=== PATIENT | female | born 1980 | race Caucasian/White ===

== ENCOUNTER 2017-05-27 00:41 | Emergency (ER) | payer OTHER ==
[~2017-05-27] VITALS: Ht 162.6 cm; Wt 92.9 kg
[2017-05-27] MEDS ORDERED: INTU1TAB PO (00:52)
[2017-05-27] MEDS ORDERED: TRIL1TAB PO (00:52)
[2017-05-27] MEDS ORDERED: DEPA1TAB3 PO (00:52)
[2017-05-27] MEDS ORDERED: NS 1,000 ML IV ONE (02:30)
[2017-05-27 03:10] LABS: BASO % 0.8 % (0.0-1.0); EOS % 0.7 % (0.0-3.0); LARGE UNSTAINED CELL # 0.1 K/mm3 (0.0-0.4); LARGE UNSTAINED CELL % 1.1 % (0.0-4.0); LYMPH % 16.7 % (24.0-44.0); MEAN CORPUSCULAR HEMOGLOBIN 34.8 pg (27.0-33.0); MEAN CORPUSCULAR HGB CONC 35.3 g/dl (32.0-36.5); MEAN CORPUSCULAR VOLUME 98.5 fl (80.0-96.0); MONO # 0.3 K/mm3 (0.0-0.8); MONO % 4.2 % (0.0-5.0); NEUTROPHILS # 4.6 K/mm3 (1.8-7.7); NEUTROPHILS % 76.4 % (36.0-66.0); PLATELET COUNT, AUTOMATED 217 k/mm3 (150-450); RED CELL DISTRIBUTION WIDTH 11.7 % (11.5-14.5); WHITE BLOOD COUNT 6.1 K/mm3 (4.0-10.0)
[2017-05-27 03:13] LABS: CONTROL LINE HCG INT CTR LINE PRESENT
[2017-05-27 03:21] LABS: ALBUMIN 3.6 GM/DL (3.2-5.2); ALBUMIN/GLOBULIN RATIO 1.16 (1.00-1.93); ALKALINE PHOSPHATASE 74 U/L (45-117); ALT/SGPT 16 U/L (12-78); AMYLASE 62 U/L (25-115); ANION GAP 8 MEQ/L (8-16); AST/SGOT 12 U/L (15-37); BILIRUBIN,DIRECT 0.1 MG/DL (0.0-0.2); BILIRUBIN,TOTAL 0.5 MG/DL (0.2-1.0); BLOOD UREA NITROGEN 12 MG/DL (7-18); CALCIUM LEVEL 8.3 MG/DL (8.5-10.1); CARBON DIOXIDE LEVEL 25 MEQ/L (21-32); CHLORIDE LEVEL 109 MEQ/L (98-107); CREATININE FOR GFR 0.78 MG/DL (0.55-1.02); GLOMERULAR FILTRATION RATE > 60.0 (>60); GLUCOSE, FASTING 112 MG/DL (70-105); POTASSIUM SERUM 4.6 MEQ/L (3.5-5.1); SODIUM LEVEL 142 MEQ/L (136-145); TOTAL PROTEIN 6.7 GM/DL (6.4-8.2)
[2017-05-27 03:38] LABS: MICROSCOPIC INDICATED? MAN YES (NO)
--- NOTE | 2017-05-27 03:40 | REPUSA ---
CLINICAL HISTORY: Abdominal pain. TECHNIQUE: Realtime sonographic images were obtained in multiple projections. COMMENTS: Echogenic hepatic lesion in the posterior aspect of the right lobe measuring 1.6 cm suggestive of a h emangioma. The liver is of normal size, parenchyma demonstrates normal echogenicity. No discrete hepatic mass is seen. There is no intra or extrahepatic biliary ductal dilatation. CBD measures 2.2 mm. The gallbladder is physiologically distended without evidence of calculi. The gallbladder wall is not thic negative sono graphic [place]. kened and there is no pericholecystic fluid. There is no abdominal ascites. The right kidney measures 11.8x6.3x4.6 cm , free of hydronephrosis. IMPRESSION: Hemangioma of the right hepatic lobe. No evidence of cholelithiasis or acute cholecystitis. Thank you for your kind referral of this patient.
[2017-05-27 03:49] LABS: MICROSCOPIC EXAM PERFORMED; RBC, URINE 0-1 /hpf (0-3); SQUAMOUS EPITHELIAL CELL URINE SMALL AMOUNT /hpf (SMALL AMT)
[2017-05-27 03:50] LABS: BACTERIA, URINE NONE SEEN; HYALINE CAST, URINE NONE SEEN /lpf (0-1)
[2017-05-27] MEDS ORDERED: PROT1TAB2 PO (03:58)
[2017-05-27 04:24] VITALS: BP 114/72
== END 2017-05-27 04:26 | disposition home or self-care (01) ==
LOC: M ED 00:41
DX: R11.10 Vomiting, unspecified (principal)

== ENCOUNTER 2017-11-06 08:07 | Emergency (ER) | payer OTHER ==
[~2017-11-06] VITALS: Ht 162.6 cm; Wt 98.6 kg
[~2017-11-06 08:07] MED LIST: DEPA1TAB3 PO; INTU1TAB PO; PROT1TAB2 PO; TRIL1TAB PO
[2017-11-06] MEDS ORDERED: FLUV100T2 PO (08:23)
[2017-11-06] MEDS ORDERED: ZITH250T PO (08:55)
[2017-11-06] MEDS ORDERED: ZOFR4TAB3 PO ×2 (08:55→09:40)
[2017-11-06] MEDS ORDERED: AZITHROMYCIN 250 MG TAB PO ONE (09:00)
[2017-11-06] MEDS ORDERED: METOCLOPRAMIDE 10 MG TAB PO ONE (09:00)
[2017-11-06] MEDS ORDERED: KETOROLAC 60 MG/2 ML VIAL (J1885) IM ONE (09:00)
[2017-11-06] MEDS ORDERED: ONDANSETRON 4 MG TAB (S0181) PO ONE (09:00)
[2017-11-06 09:31] VITALS: BP 136/92
[2017-11-06] MEDS ORDERED: ZITHTAB PO (09:40)
== END 2017-11-06 09:43 | disposition home or self-care (01) ==
LOC: M ED 08:07
DX: R51 Headache (principal); J01.90 Acute sinusitis, unspecified; R03.0 Elevated blood-pressure reading, without diagnosis of hypertension; F41.9 Anxiety disorder, unspecified; F33.9 Major depressive disorder, recurrent, unspecified; Z97.5 Presence of (intrauterine) contraceptive device; Z79.899 Other long term (current) drug therapy; Z88.0 Allergy status to penicillin
CPT/HCPCS: 96372; 99284; J1885